=== PATIENT | male | born 1945 | race Caucasian/White ===

== ENCOUNTER → 2020-06-08 | Outpatient (CLI) | payer OTHER ==
[2020-06-08 08:31] LABS: MEAN CORPUSCULAR HEMOGLOBIN 35.4 pg (27.5-34.5); MEAN CORPUSCULAR HGB CONC 33.5 g/dL (33.2-36.2); MEAN PLATELET VOLUME 7.3 fL (7.4-10.4); PLATELET COUNT 208 x10^3/uL (130-400); RED CELL DISTRIBUTION WIDTH 13.8 % (9.4-14.8)
[2020-06-08 09:16] LABS: MD YES
[2020-06-08 09:17] LABS: LYMPH#(MANUAL) 11.17 x10^3/uL (1-3.4); LYMPHS% (MANUAL) 73 % (22-44); MONOS#(MANUAL) 0.46 x10^3/uL (0.3-2.7); MONOS% (MANUAL) 3 % (2-9); SEG#(MANUAL) 3.67 x10^3/uL (1.8-6.8); SEGS% (MANUAL) 24 % (42-75)
[2020-06-08 09:19] LABS: <PLATELET ESTIMATE> ADEQUATE; <PLT MORPHOLOGY> NORMAL PLT MORPH; POLYCHROMASIA 1+
== END | disposition home or self-care (01) ==
LOC: LAB 08:12
PROVIDERS: ATTEND Orthopaedic Surgery
DX: C95.90 Leukemia, unspecified not having achieved remission (principal)
CPT/HCPCS: 36415; 85025